=== PATIENT | female | born 1975 | race Caucasian/White ===

== ENCOUNTER 2019-05-09 12:46 | Emergency (ER) | payer BC, OTHER ==
[~2019-05-09] VITALS: Ht 162.6 cm; Wt 106.1 kg
--- NOTE | 2019-05-09 13:28 | ED Abdominal Pain ---
General Stated Complaint: EPIGASTRIC PAIN Source of Information: Patient History of Present Illness Date Seen by Provider: May 09, 2019 Time Seen by Provider: 13:10 Initial Comments The patient is a pleasant 43-year-old female who presents for evaluation of epigastric abdominal pain which started suddenly after eating a sandwich. She reports the pain radiated to her back and was quite severe. She states initially the pain was approximately a 9 out of 10 but is currently a 5 out of 10. She states that years ago she had similar pain and she was treated with GERD and ulcer medications. She denies fevers or chills, chest pain or shortness of breath, rectal bleeding, vomiting, urinary symptoms, pelvic pain/bleeding/discharge. She states that at the time of the pain she felt somewhat short of breath and clammy. She is alert and oriented 4, calm, and appears to be in no distress at this time. Timing/Duration: 1/2 Hour Severity/Quality: Moderate Location: Epigastric Radiation: Back Allergies and Home Medications Allergies Coded Allergies: No Known Drug Allergies (Unverified , 05/09/19) Patient Home Medication List Home Medication List Reviewed: Yes Review of Systems Review of Systems Constitutional: no symptoms reported EENTM: No Symptoms Reported Cardiovascular: No Symptoms Reported Gastrointestinal: Abdominal Pain Genitourinary: No Symptoms Reported Musculoskeletal: no symptoms reported Skin: no symptoms reported Psychiatric/Neurological: No Symptoms Reported Endocrine: No Symptoms Reported Hematologic/Lymphatic: No Symptoms Reported All Other Systems Reviewed Negative Unless Noted: Yes Past Ytaqxjo-Pmfjps-Hvnbtz Hx Past Med/Social Hx: Reviewed Nursing Past Med/Soc Hx Physical Exam Vital Signs Capillary Refill : Height/Weight/BMI Height: '" Weight: lbs. oz. kg; BMI Method: General Appearance: WD/WN, no apparent distress HEENT: PERRL/EOMI, TMs normal Neck: non-tender, full range of motion Respiratory: chest non-tender, lungs clear, normal breath sounds, no respiratory distress, no accessory muscle use Cardiovascular: regular rate, rhythm, no edema Gastrointestinal: normal bowel sounds, soft, no organomegaly, no pulsatile mass, tenderness (epigastric region, mild RUQ ttp) Extremities: normal capillary refill Back: normal inspection, no CVA tenderness, no vertebral tenderness Neurologic/Psychiatric: third rigger II-XII nml as tested, alert, normal mood/affect, oriented x 3 Skin: normal color, warm/dry Progress/Results/Core Measures Results/Orders Lab Results Laboratory Tests Test 05/09/19 13:35 05/09/19 16:52 Range/Units White Blood Count 7.3 4.3-11.0 10^3/uL Red Blood Count 3.53 L 4.35-5.85 10^6/uL Hemoglobin 7.0 L 11.5-16.0 G/DL Hematocrit 25 L 35-52 % Mean Corpuscular Volume 70 L 80-99 FL Mean Corpuscular Hemoglobin 20 L 25-34 PG Mean Corpuscular Hemoglobin Concent 29 L 32-36 G/DL Red Cell Distribution Width 15.8 H 10.0-14.5 % Platelet Count 268 130-400 10^3/uL Mean Platelet Volume 11.9 H 7.4-10.4 FL Neutrophils (%) (Auto) 72 42-75 % Lymphocytes (%) (Auto) 20 12-44 % Monocytes (%) (Auto) 7 0-12 % Eosinophils (%) (Auto) 1 0-10 % Basophils (%) (Auto) 0 0-10 % Neutrophils # (Auto) 5.2 1.8-7.8 X 10^3 Lymphocytes # (Auto) 1.5 1.0-4.0 X 10^3 Monocytes # (Auto) 0.5 0.0-1.0 X 10^3 Eosinophils # (Auto) 0.1 0.0-0.3 10^3/uL Basophils # (Auto) 0.0 0.0-0.1 10^3/uL Sodium Level 136 135-145 MMOL/L Potassium Level 3.2 L 3.6-5.0 MMOL/L Chloride Level 99 98-107 MMOL/L Carbon Dioxide Level 22 21-32 MMOL/L Anion Gap 15 H 5-14 MMOL/L Blood Urea Nitrogen 11 7-18 MG/DL Creatinine 0.65 0.60-1.30 MG/DL Estimat Glomerular Filtration Rate > 60 BUN/Creatinine Ratio 17 Glucose Level 140 H 70-105 MG/DL Calcium Level 8.5 8.5-10.1 MG/DL Corrected Calcium 8.7 8.5-10.1 MG/DL Total Bilirubin 0.2 0.1-1.0 MG/DL Aspartate Amino Transf (AST/SGOT) 96 H 5-34 U/L Alanine Aminotransferase (ALT/SGPT) 65 H 0-55 U/L Alkaline Phosphatase 95 40-136 U/L Troponin I < 0.30 <0.30 NG/ML Total Protein 6.8 6.4-8.2 GM/DL Albumin 3.8 3.2-4.5 GM/DL Amylase Level 19 L 25-125 U/L Lipase 25 8-78 U/L Urine Color YELLOW Urine Clarity CLEAR Urine pH 6.5 5-9 Urine Specific [place] <=1.005 1.016-1.022 Urine Protein NEGATIVE NEGATIVE Urine Glucose (UA) NEGATIVE NEGATIVE Urine Ketones NEGATIVE NEGATIVE Urine Nitrite NEGATIVE NEGATIVE Urine Bilirubin NEGATIVE NEGATIVE Urine Urobilinogen 0.2 NORMAL MG/DL Urine Leukocyte Esterase NEGATIVE NEGATIVE Urine RBC (Auto) NEGATIVE NEGATIVE Urine RBC NONE /HPF Urine WBC 0-2 /HPF Urine Squamous Epithelial Cells 2-5 /HPF Urine Crystals NONE /LPF Urine Bacteria NEGATIVE /HPF Urine Casts NONE /LPF Urine Mucus NONE /LPF Urine Culture Indicated NO Urine Test NEGATIVE NEGATIVE My Orders Orders - ANANTH SNYDER DO Comprehensive Metabolic Panel (05/09/19 13:13) Lipase (05/09/19 13:13) Amylase (05/09/19 13:13) Ua Culture If Indicated (05/09/19 13:13) Ed Iv/Invasive Line Start (05/09/19 13:13) Cbc With Automated Diff (05/09/19 13:13) Hcg,Qualitative Urine (05/09/19 13:13) Troponin I (05/09/19 13:31) Dicyclomine Capsule (Bentyl Capsule) (05/09/19 14:15) Lidocaine 2% Viscous 15 Ml (Xylocaine Vi (05/09/19 14:15) Antacid Suspension (Mylanta Suspension (05/09/19 14:15) Pantoprazole Tablet (Protonix Tablet) (05/09/19 14:15) Occult Blood Stool (05/09/19 15:02) Ct Abdomen/Pelvis W (05/09/19 16:29) Iohexol Injection (Omnipaque 350 Mg/Ml 1 (05/09/19 16:45) Received Contrast (Hold Metformin- Contr (05/09/19 16:45) Sodium Chloride Flush (Catheter Flush Sy (05/09/19 16:45) Ns (Ivpb) (Sodium Chloride 0.9% Ivpb Bag (05/09/19 16:45) Potassium Chloride (Tablet) (K Dur Table (05/09/19 18:30) Medications Given in ED Current Medications Medications Dose Ordered Sig/Jeff Route Start Time Stop Time Status Last Admin Dose Admin Al Hydrox/Mg Hydrox/Simethicone 30 ml ONCE ONCE PO 05/09/19 14:15 05/09/19 14:16 DC 05/09/19 14:53 30 ML Iohexol 100 ml ONCE ONCE IV 05/09/19 16:45 05/09/19 16:46 DC 05/09/19 17:12 100 ML Lidocaine HCl 15 ml ONCE ONCE PO 05/09/19 14:15 05/09/19 14:16 DC 05/09/19 14:52 15 ML Pantoprazole Sodium 40 mg ONCE ONCE PO 05/09/19 14:15 05/09/19 14:16 DC 05/09/19 14:52 40 MG Sodium Chloride 10 ml NEEDED PRN IV 05/09/19 16:45 05/09/19 17:12 10 ML Sodium Chloride 100 ml ONCE ONCE IV 05/09/19 16:45 05/09/19 16:46 DC 05/09/19 17:12 100 ML Progress Progress Note : Progress Note @1515 - The patient states that she is feeling a little better. Of note her hemoglobin is 7.0. The patient states that she has chronic anemia and that she is supposed be taking iron pills but has not been compliant. She states that she has been having some dysfunctional uterine bleeding and that she has been checked for cervical cancer as has been an ongoing issue which she is working up as an outpatient. She states that her stools have been normal in color and denies any blood or dark stools. Her PCP is Dr. Llamas and we are going to try to contact her office to obtain the patient's most recent hemoglobins. @1830 - Patient updated on lab and imaging results including finding of 3.2 cm gallstone, hypokalemia, and anemia. The patient's previous hemoglobins ranged between the mid 8's and lower 10's. Her guaiac was negative. The patient is completely pain-free at this time and wants to go home. I expressed my concerns about her hemoglobin and the large gallstone. Her vital signs are stable. I expressed the importance of close follow-up with her PCP to repeat her hemoglobin in the near future. She also needs to be compliant with her iron. The patient will go home with a prescription for Bentyl and Protonix. She'll be given a referral to both her PCP and a general surgeon. Strongly advised the patient to return to the emergency department immediately if she changes her mind or if symptoms worsen or if new symptoms develop. She expresses verbal understanding and agreement with plan. Diagnostic Imaging Comments [facility]. [place], [place] NAME: KANG JOSE [facility] REC#: [id number] PT STATUS: REG ER : 1975 PHYSICIAN: NAANTH SNYDER DO ADMIT DATE: 05/09/19/ER FS Draft Date of Exam:05/09/19 CT ABDOMEN/PELVIS W PROCEDURE: CT abdomen and pelvis with contrast. TECHNIQUE: Multiple contiguous axial images were obtained through the abdomen and pelvis after administration of intravenous contrast. Auto Exposure Controls were utilized during the CT exam to meet ALARA standards for radiation dose reduction. INDICATION: Epigastric pain. COMPARISON: None available. FINDINGS: Lower chest: The lung bases are clear. No pericardial or pleural effusion. Peritoneum: No free intraperitoneal air or fluid. Liver and biliary system: The liver is normal. There is a large mineralized gallstone at the level of the gallbladder fundus that measures up to 3.2 cm. No biliary duct dilatation. Spleen and Pancreas: Spleen is normal. The pancreas enhances normally without mass lesion or peripancreatic inflammatory changes. Adrenals: Normal. tract: The kidneys enhance normally without suspicious mass or obstruction. Urinary bladder is distended without wall thickening. No renal or ureteral calculi. Uterus and ovaries are normal in appearance. GI tract: Stomach is filled with fluid and there is no wall thickening. Specifically, there are no features of perforated gastric ulcer. No bowel obstruction. No pericolonic inflammatory changes. Normal appendix. Vasculature and Lymph nodes: Normal caliber aorta. No abdominal or pelvic lymphadenopathy. Musculoskeletal: No concerning osseous lesion. Very small fat-containing umbilical hernia. No inguinal or pelvic hernia. IMPRESSION: 1. Large gallstone without CT features of acute cholecystitis or biliary obstruction. 2. Otherwise, no obstructive or inflammatory process in the abdomen and pelvis. Dictated on workstation # [id number] Dict: 05/09/19 1809 Trans: 05/09/19 1815 [id number] Interpreted by: BRANDO WATKINS MD Electronically signed by: Departure Impression Primary Impression: Anemia Additional Impressions: Hypokalemia Epigastric abdominal pain Gallstone Disposition: HOME, SELF-CARE Condition: Stable Departure-Patient Inst. Decision time for Depature: 18:36 Referrals: SHEILA LLAMAS MD (PCP/Family) Primary Care Physician Patient Instructions: Gallstones (DC), Acute Abdomen (Belly Pain), Ulcer and Gastritis Diet, Gastritis (DC), Anemia Caused by Low Iron Add. Discharge Instructions: Prescribed medicine as directed. Return to the ER for new or worsening symptoms immediately. Follow-up with your doctor in the next 2-3 days to have her hemoglobin repeated. Follow-up with the general surgeon provided to address your large gallstone. Scripts Pantoprazole Sodium (Protonix) 40 Mg Tablet.dr 40 MG PO DAILY for 30 Days, #30 TAB Prov: ANANTH SNYDER DO 05/09/19 Dicyclomine HCl (Dicyclomine HCl) 20 Mg Tablet 20 MG PO Q6H PRN for ABDOMINAL PAIN for 7 Days, #20 TAB Prov: ANANTH SNYDER DO 05/09/19 ANANTH SNYDER DO May 09, 2019 13:27
[2019-05-09 13:53] LABS: HEMATOCRIT 25 % (35-52); MEAN CORPUSCULAR HEMOGLOBIN 20 PG (25-34); WHITE BLOOD COUNT 7.3 10^3/uL (4.3-11.0)
[2019-05-09 13:54] LABS: BASOPHILS % (AUTO) 0 % (0-10); EOSINOPHILS # (AUTO) 0.1 10^3/uL (0.0-0.3); EOSINOPHILS % (AUTO) 1 % (0-10); LYMPHOCYTES # (AUTO) 1.5 X 10^3 (1.0-4.0); LYMPHOCYTES % (AUTO) 20 % (12-44); MEAN CORPUSCULAR HGB CONC 29 G/DL (32-36); MEAN CORPUSCULAR VOLUME 70 FL (80-99); MEAN PLATELET VOLUME 11.9 FL (7.4-10.4); MONOCYTES # (AUTO) 0.5 X 10^3 (0.0-1.0); MONOCYTES % (AUTO) 7 % (0-12); NEUTROPHILS # (AUTO) 5.2 X 10^3 (1.8-7.8); NEUTROPHILS % (AUTO) 72 % (42-75); PLATELET COUNT 268 10^3/uL (130-400); RED CELL DISTRIBUTION WIDTH 15.8 % (10.0-14.5)
[2019-05-09 14:09] LABS: ALANINE AMINOTRANSFERASE 65 U/L (0-55); ALBUMIN 3.8 GM/DL (3.2-4.5); ALKALINE PHOSPHATASE 95 U/L (40-136); AMYLASE 19 U/L (25-125); BILIRUBIN,TOTAL 0.2 MG/DL (0.1-1.0); BUN/CREATININE RATIO 17; CALCIUM 8.5 MG/DL (8.5-10.1); CARBON DIOXIDE 22 MMOL/L (21-32); CHLORIDE 99 MMOL/L (98-107); CREATININE SERUM 0.65 MG/DL (0.60-1.30); GFR ESTIMATED > 60; GLUCOSE 140 MG/DL (70-105); LIPASE 25 U/L (8-78); POTASSIUM 3.2 MMOL/L (3.6-5.0); SODIUM 136 MMOL/L (135-145); TOTAL PROTEIN 6.8 GM/DL (6.4-8.2)
[2019-05-09] MEDS: LIDOCAINE 2% VISCOUS 15 ML UDC PO ONE (14:52)
[2019-05-09] MEDS: PANTOPRAZOLE 40 MG (PROTONIX) TAB PO ONE (14:52)
[2019-05-09] MEDS: ANTACID SUSP 30 ML UDC (MYLANTA) PO ONE (14:53)
[2019-05-09] MEDS: DICYCLOMINE 10 MG (BENTYL) CAP PO SCH (14:56)
[2019-05-09] MEDS ORDERED: HOLD METFORMIN - RECEIVED CONTRAST 20 ML VIAL IV SCH (16:45)
[2019-05-09 17:06] LABS: BACTERIA,URINE NEGATIVE /HPF; BILIRUBIN,URINE NEGATIVE (NEGATIVE); CLARITY,URINE CLEAR; COLOR,URINE YELLOW; GLUCOSE, URINE (UA) NEGATIVE (NEGATIVE); KETONES,URINE NEGATIVE (NEGATIVE); LEUKOCYTE ESTERASE ,URINE NEGATIVE (NEGATIVE); NITRITE,URINE NEGATIVE (NEGATIVE); PH,URINE 6.5 (5-9); PROTEIN,URINE NEGATIVE (NEGATIVE); UROBILINOGEN,URINE 0.2 MG/DL (NORMAL); WBC,URINE 0-2 /HPF
[2019-05-09] MEDS: NS 100 ML (IVPB) BAG IV ONE (17:12)
[2019-05-09] MEDS: CATHETER FLUSH 10 ML SYR IV PRN (17:12)
[2019-05-09] MEDS: IOHEXOL 350 MG/ML 100 ML (OMNIPAQUE 350) VIAL IV ONE (17:12)
--- NOTE | 2019-05-09 18:16 | Diagnostic Imaging Report ---
PROCEDURE: CT abdomen and pelvis with contrast. TECHNIQUE: Multiple contiguous axial images were obtained through the abdomen and pelvis after administration of intravenous contrast. Auto Exposure Controls were utilized during the CT exam to meet ALARA standards for radiation dose reduction. INDICATION: Epigastric pain. COMPARISON: None available. FINDINGS: Lower chest: The lung bases are clear. No pericardial or pleural effusion. Peritoneum: No free intraperitoneal air or fluid. Liver and biliary system: The liver is normal. There is a large mineralized gallstone at the level of the gallbladder fundus that measures up to 3.2 cm. No biliary duct dilatation. Spleen and Pancreas: Spleen is normal. The pancreas enhances normally without mass lesion or peripancreatic inflammatory changes. Adrenals: Normal. tract: The kidneys enhance normally without suspicious mass or obstruction. Urinary bladder is distended without wall thickening. No renal or ureteral calculi. Uterus and ovaries are normal in appearance. GI tract: Stomach is filled with fluid and there is no wall thickening. Specifically, there are no features of perforated gastric ulcer. No bowel obstruction. No pericolonic inflammatory changes. Normal appendix. Vasculature and Lymph nodes: Normal caliber aorta. No abdominal or pelvic lymphadenopathy. Musculoskeletal: No concerning osseous lesion. Very small fat-containing umbilical hernia. No inguinal or pelvic hernia. IMPRESSION: 1. Large gallstone without CT features of acute cholecystitis or biliary obstruction. 2. Otherwise, no obstructive or inflammatory process in the abdomen and pelvis. Dictated by: Dictated on workstation # [id number]
[2019-05-09] MEDS ORDERED: PANT40TA2 PO (18:41)
[2019-05-09] MEDS ORDERED: DICY20TA10 PO (18:41)
[2019-05-09] MEDS: KCL 20 MEQ TAB (K-DUR) PO ONE (19:10)
[2019-05-09 19:15] VITALS: BP 150/79
== END 2019-05-09 19:15 | disposition home or self-care (01) ==
LOC: ER FS 12:48
DX: D64.9 Anemia, unspecified (principal); E87.6 Hypokalemia; K80.20 Calculus of gallbladder without cholecystitis without obstruction; K21.9 Gastro-esophageal reflux disease without esophagitis
CPT/HCPCS: 36415; 74177; 80053; 81000; 82150; 82274; 83690; 84484; 84703; 85025

== ENCOUNTER 2019-05-15 14:31 | Outpatient (CLI) | payer BC ==
[~2019-05-15] VITALS: Ht 162.6 cm; Wt 106.1 kg
[~2019-05-15 14:31] MED LIST: DICY20TA10 PO; PANT40TA2 PO
[2019-05-16] MEDS ORDERED: HYDR-3816 PO (12:47)
== END 2019-05-15 14:59 | disposition home or self-care (01) ==
LOC: PREOP 14:31
PROVIDERS: ATTEND Surgery
DX: Z01.818 Encounter for other preprocedural examination (principal)

== ENCOUNTER 2019-05-16 11:50 | Day surgery (SDC) | payer BC ==
[2019-05-16] VITALS (11 sets, daily range): BP systolic 116–142; BP diastolic 55–91
[~2019-05-16] VITALS: Ht 162.6 cm; Wt 106.1 kg
[2019-05-16] MEDS ORDERED: proPOfol 200 MG/20 ML (DIPRIVAN) VIAL IV ONE (12:19)
[2019-05-16] MEDS ORDERED: LIDOCAINE PF 2% 5 ML (XYLOCAINE) VIAL ONE (12:19)
[2019-05-16] MEDS ORDERED: ONDANSETRON 4 MG/2 ML (SDV) Z0FRAN ONE (12:19)
[2019-05-16] MEDS ORDERED: ROCURONIUM 10 MG/ML 5 ML SYRINGE IV ONE (12:19)
[2019-05-16] MEDS ORDERED: fentaNYL INJECTION 100 MCG/2 ML AMP ONE ×2 (12:20→14:03)
[2019-05-16] MEDS ORDERED: MIDAZOLAM 2 MG/2 ML (VERSED) VIAL ONE (12:20)
[2019-05-16] MEDS ORDERED: BUP/EPI 0.25% 1:200,000 (MARCAINE) 10 ML VIAL IJ ONE (12:25)
[2019-05-16] MEDS ORDERED: SCOPOLAMINE 1.5 MG (TRANSDERM-SCOP) PATCH TOP ONE (12:30)
[2019-05-16] MEDS ORDERED: FAMOTIDINE 20MG/2ML IV (PEPCID) IV ONE (12:30)
[2019-05-16] MEDS ORDERED: ONDANSETRON 4 MG/2 ML (SDV) Z0FRAN IV ONE (12:30)
[2019-05-16] MEDS: LACTATED RINGERS 1,000 ML IV PRN ×2 (12:30→14:10)
[2019-05-16] MEDS ORDERED: ceFAZolin 2 GM/50 ML NS 50 ML ONE (12:32)
[2019-05-16 12:38] LABS: BASOPHILS % (AUTO) 0 % (0-10); EOSINOPHILS % (AUTO) 1 % (0-10); HEMATOCRIT 33 % (35-52); HEMOGLOBIN 9.3 G/DL (11.5-16.0); LYMPHOCYTES % (AUTO) 29 % (12-44); MEAN CORPUSCULAR HEMOGLOBIN 20 PG (25-34); MEAN CORPUSCULAR HGB CONC 29 G/DL (32-36); MEAN CORPUSCULAR VOLUME 71 FL (80-99); MEAN PLATELET VOLUME 12.4 FL (7.4-10.4); MONOCYTES # (AUTO) 0.8 X 10^3 (0.0-1.0); MONOCYTES % (AUTO) 11 % (0-12); NEUTROPHILS # (AUTO) 4.1 X 10^3 (1.8-7.8); NEUTROPHILS % (AUTO) 59 % (42-75); PLATELET COUNT 321 10^3/uL (130-400); RED CELL DISTRIBUTION WIDTH 19.8 % (10.0-14.5)
[2019-05-16] MEDS ORDERED: HYDROcodone/APAP 5 MG/325 MG (LORTAB) TAB PO ONE (12:45)
[2019-05-16] MEDS ORDERED: ceFAZolin 2 GM/50 ML NS 50 ML IV ONE (12:45)
[2019-05-16] MEDS ORDERED: ACETAMINOPHEN 325 MG TABLET PO PRN (12:45)
[2019-05-16] MEDS ORDERED: morphine INJ 10 MG/ML 1ML (SYR OR VIAL) IVP PRN (12:45)
[2019-05-16] MEDS ORDERED: ONDANSETRON 4 MG/2 ML (SDV) Z0FRAN IVP PRN ×2 (12:45→14:45)
--- NOTE | 2019-05-16 12:45 | Progress Note-Pre Operative ---
Pre-Operative Progress Note H&P Reviewed The H&P was reviewed, patient examined and no changes noted. Date Seen by Provider: May 16, 2019 Time Seen by Provider: 12:44 Date H&P Reviewed: May 16, 2019 Time H&P Reviewed: 12:40 Pre-Operative Diagnosis: Chronic Calculous Cholecystitis MATTHEW ATKINSON APRN May 16, 2019 12:45
[2019-05-16] MEDS ORDERED: HYDR-3816 PO (12:47)
--- NOTE | 2019-05-16 12:49 | Discharge Inst-Surgical ---
D/C Lap Instructions-KIDO Reconcile Patient Problems Problems Reviewed?: Yes New, Converted, or Re-Newed RX: RX on Chart Follow Up Appt in 2 weeks Activity as tolerated No driving for 24 hours No driving while on pain medications Incentive Spirometry use every 2 hours while awake Regular Diet Symptoms to Report: Fever over 101 degree F, Nausea/Vomiting Infection Signs and Symptoms to report: Increased redness, Foul odor of wound, Increased drainage Bathing instructions: May shower Operative Area Clean/Dry; Keep incision clean/dry If any problems/questions: Contact your physician or go to Emergency Room MATTHEW ATKINSON APRN May 16, 2019 12:49
[2019-05-16] MEDS ORDERED: SEVOFLURANE (ULTANE) 15 ML INHAL SOLN ONE ×2 (13:36→14:20)
[2019-05-16] MEDS ORDERED: GLYCOPYRROLATE 0.2 MG/ML (ROBINUL) 2 ML VIAL ONE (13:59)
[2019-05-16] MEDS ORDERED: DEXAMETHASONE 10 MG/ML (DECADRON) 1 ML VIAL ONE (13:59)
[2019-05-16] MEDS ORDERED: NEOSTIGMINE 3 MG/3 ML VIAL ONE (13:59)
--- NOTE | 2019-05-16 14:30 | Progress Note-Post Operative ---
Post-Operative Progess Note Surgeon (s)/Track Sweeper (s) Surgeon KAREEM APONTE MD Track Sweeper: franco cameron PROGRAMMER NUMERICAL CONTROL Pre-Operative Diagnosis Chronic Calculous Cholecystitis Post-Operative Diagnosis same Procedure & Operative Findings Date of Procedure 05/16/19 Procedure Performed/Findings laparoscopic cholecystectomy Anesthesia Type get Estimated Blood Loss Estimated blood loss (mL): minimal Specimens/Packing Specimens Removed gallbladder KAREEM APONTE MD May 16, 2019 14:30
[2019-05-16] MEDS ORDERED: morphine INJ 10 MG/ML 1ML (SYR OR VIAL) IVP ONE (14:45)
[2019-05-16] MEDS ORDERED: HYDROmorphone 2 MG/ML VIAL (DILAUDID) IV ONE (14:45)
--- NOTE | 2019-05-16 16:06 | OPERATIVE REPORT ---
DATE OF SERVICE: 05/16/2019 ATTENDING PRIMARY CARE PHYSICIAN: Dr. Mariella Longoria. PREOPERATIVE DIAGNOSIS: Symptomatic chronic calculous cholecystitis. POSTOPERATIVE DIAGNOSIS: Symptomatic chronic calculous cholecystitis. PROCEDURE: Laparoscopic cholecystectomy. SURGEON: Kareem Aponte MD TUBE BUILDER: Saleem Brink APRN ANESTHESIA: General endotracheal. ESTIMATED BLOOD LOSS: Minimal. FINDINGS: Mild chronic gallbladder wall thickening as well as a palpable solitary large gallstone. DISPOSITION: The patient tolerated the procedure well. INDICATIONS: The patient is a 43-year-old female, who was seen in the Emergency Department in [place] for crampy abdominal pain, which she has had intermittently for the past several years; however, this has become significantly worse. Pain was in the right upper abdominal quadrant with radiation towards the back. She also reports that she has had episodes of nausea and vomiting as well as abdominal bloating and episodes of diarrhea as well. In the emergency room, she was found also to have a hemoglobin of 7.0; however, she does have significant menorrhagia for many years. A repeat hemoglobin today was 9.2. CT scan also was performed, which did show a large gallstone. DESCRIPTION OF PROCEDURE: The patient was brought to the operating room and laid supine on the table. After adequate IV pain and sedative medications and general endotracheal intubation, the abdomen was prepped and draped in standard surgical fashion. A 0.5% Marcaine with epinephrine was used to anesthetize the overlying skin in the left upper abdominal quadrant and a small transverse skin incision made using a 15 blade. An 0 silk suture was applied to the medial aspect of incision for retraction and a Veress needle inserted with low opening pressure of 0 mmHg and the abdomen was insufflated to 15 mmHg pressure. The Veress needle removed and a 5 mm Xcel trocar placed followed by a 5 mm 45-degree angle laparoscope visualizing the peritoneal cavity. A 4-quadrant abdominal exploration was performed. The liver, small bowel, omentum appeared normal. There was slightly chronic gallbladder wall inflammation noted as well as a large solitary palpable stone. Under direct visualization, we then proceeded to place a supraumbilical 10 mm port after the skin and peritoneal lining were anesthetized using 0.5% Marcaine with epinephrine and a transverse skin incision was made using 15 blade. In a similar manner, a right upper abdominal quadrant 5 mm port was placed. The patient was then placed in reverse Trendelenburg position as well as plane right side up, left side down. The fundus of the gallbladder was then retracted anteriorly and superiorly. The hepatoduodenal ligament was then opened using cautery. Blunt dissection as well as cautery on the hook instrument. The entire critical view of safety was identified including the triangle of Calot as well as the cystic duct and artery as the only two structures going into the gallbladder as well as the cystic plate behind the proximal gallbladder. A timeout was then taken. The cystic duct and artery were then clipped proximally, distally and cut with EndoShears. The gallbladder was then dissected off the liver bed using cautery on the hook instrument with visualization of good hemostasis as well as no leaking ducts of Luschka. The gallbladder was removed through the 10 mm port site using an EndoCatch bag. The 10 mm port site fascia and peritoneum were then closed under direct visualization using a James-Christina device and 0 Vicryl suture. The abdomen was desufflated and the remaining ports were removed. All skin incisions were closed using 4-0 Monocryl running subcuticular sutures. Wounds were then cleaned and covered with Dermabond. The patient tolerated the procedure well. We will start IV and oral pain medication as well as a clear liquid diet. Once she is tolerating clears, has good pain control with oral pain medications, ambulating well, we will discharge her home. Job ID: [id number] DocumentID: [id number] Dictated Date: 05/16/2019 14:18:47 Forming Department Supervisor Date: 05/16/2019 16:05:36 Dictated By: KAREEM APONTE MD
== END 2019-05-16 16:50 | disposition home or self-care (01) ==
LOC: SDC 11:50
PROVIDERS: ATTEND Surgery
DX: K80.12 Calculus of gallbladder with acute and chronic cholecystitis without obstruction (principal); D50.9 Iron deficiency anemia, unspecified; E66.9 Obesity, unspecified; Z79.891 Long term (current) use of opiate analgesic; Z68.41 Body mass index [BMI] 40.0-44.9, adult; Z79.899 Other long term (current) drug therapy; Z83.3 Family history of diabetes mellitus; Z82.49 Family history of ischemic heart disease and other diseases of the circulatory system
CPT/HCPCS: 36415; 84703; 85025; 87081; 88304

== ENCOUNTER → 2020-02-28 | Outpatient (CLI) | payer OTHER ==
[~2020-02-28] MED LIST changes: +HYDR-34 PO
[2020-02-28 10:23] LABS: HEMATOCRIT 36 % (35-52); HEMOGLOBIN 11.2 G/DL (11.5-16.0); LYMPHOCYTES % (AUTO) 30 % (12-44); MEAN CORPUSCULAR HEMOGLOBIN 24 PG (25-34); MEAN CORPUSCULAR HGB CONC 31 G/DL (32-36); MEAN CORPUSCULAR VOLUME 78 FL (80-99); MEAN PLATELET VOLUME 12.1 FL (7.4-10.4); NEUTROPHILS % (AUTO) 59 % (42-75); PLATELET COUNT 259 10^3/uL (130-400); RED CELL DISTRIBUTION WIDTH 14.6 % (10.0-14.5); WHITE BLOOD COUNT 5.8 10^3/uL (4.3-11.0)
[2020-02-28 10:24] LABS: BASOPHILS # (AUTO) 0.1 10^3/uL (0.0-0.1); BASOPHILS % (AUTO) 1 % (0-10); EOSINOPHILS % (AUTO) 1 % (0-10); LYMPHOCYTES # (AUTO) 1.7 X 10^3 (1.0-4.0); MONOCYTES # (AUTO) 0.5 X 10^3 (0.0-1.0); MONOCYTES % (AUTO) 9 % (0-12); NEUTROPHILS # (AUTO) 3.5 X 10^3 (1.8-7.8)
[2020-02-28 10:48] LABS: ALANINE AMINOTRANSFERASE 11 U/L (0-55); ALBUMIN 4.3 GM/DL (3.2-4.5); ALKALINE PHOSPHATASE 80 U/L (40-136); BILIRUBIN,TOTAL 0.2 MG/DL (0.1-1.0); BUN/CREATININE RATIO 16; CALCIUM 9.4 MG/DL (8.5-10.1); CARBON DIOXIDE 21 MMOL/L (21-32); CHLORIDE 103 MMOL/L (98-107); CREATININE SERUM 0.62 MG/DL (0.60-1.30); GFR ESTIMATED > 60; GLUCOSE 118 MG/DL (70-105); POTASSIUM 3.9 MMOL/L (3.6-5.0); SODIUM 139 MMOL/L (135-145); TOTAL PROTEIN 7.9 GM/DL (6.4-8.2)
[2020-02-28 14:42] LABS: TRIGLYCERIDES 143 MG/DL (<150); VLDL CHOLESTEROL 29 MG/DL (5-40)
[2020-02-28 14:47] LABS: CHOLESTEROL 206 MG/DL (< 200)
[2020-02-28 14:48] LABS: HDL CHOLESTEROL 54 MG/DL (40-60)
== END ==
LOC: LAB FS 09:49
PROVIDERS: ATTEND Family Medicine
DX: Z00.00 Encounter for general adult medical examination without abnormal findings (principal); N92.0 Excessive and frequent menstruation with regular cycle
CPT/HCPCS: 36415; 80053; 80061; 85025